=== PATIENT | female | born 1995 | race Caucasian/White ===

== ENCOUNTER 2018-03-15 07:36 | Outpatient (CLI) | payer BC ==
[2018-03-15 16:53] LABS: Mean Corpuscular HGB CONC 33.4 g/dL (32.0-36.0); Mean Corpuscular Volume 92.7 fL (78.0-98.0); Mean Platelet Volume 7.7 fL (7.4-10.4); Platelet Count 452 thou/uL (130-400); Red Blood Cell (RBC) Count 4.21 mill/uL (4.20-5.40); White Blood Cell (WBC) Count 5.9 thou/uL (4.8-10.8)
[2018-03-15 17:03] LABS: BHCG - Serum Negative (NEGATIVE); Pregs Control Background? CLEAR/WHITE (CLR/WHITE); Pregs Control Bar Appear? YES (CONTROL BAR)
== END 2018-03-15 07:37 | disposition home or self-care (01) ==
LOC: LABBT 07:36
PROVIDERS: ATTEND Obstetrics & Gynecology
DX: Z01.812 Encounter for preprocedural laboratory examination (principal); N94.6 Dysmenorrhea, unspecified; N94.10 Unspecified dyspareunia
CPT/HCPCS: 84703; 85027; 86850; 86900; 86901

== ENCOUNTER 2018-03-16 10:13 | Day surgery (SDC) | payer BC ==
[2018-03-15 16:52] VITALS: BMI 19.8
--- NOTE | 2018-03-16 00:03 | HP ---
She is scheduled for day surgery for 03/16/2018. HISTORY OF PRESENT ILLNESS: Ms. Vaughn is a 22-year-old white female, G0, who has been having increasingly severe dysmenorrhea and also dyspareunia. This has progressed in severity and has not been alleviated by significant amounts of nonsteroidals. She also reports onset of some diarrheal-like symptoms premenstrual and during her menstrual cycles. With every menstrual cycle, this has also become an issue for her. She also has polycystic ovarian syndrome evidenced by her ultrasound evaluation with multiple small cysts throughout her ovary and also some irregular menstrual cycles. PAST MEDICAL HISTORY: Significant for attention deficit disorder. SOCIAL HISTORY: She is a nonsmoker. No excessive alcohol or drug use. ALLERGIES: SHE HAS NO KNOWN DRUG ALLERGIES. CURRENT MEDICATIONS: Vyvanse 50 mg capsule daily. FAMILY HISTORY: Significant for sister having carcinoma of the uterine cervix, which was invasive. She has had no previous surgery. Her last Pap smear was 2017, which was normal. She has never been . PHYSICAL EXAMINATION: VITAL SIGNS: Her height is 5 feet 6 inches, weight 123 pounds, BMI of 19.9, blood pressure 110/64, pulse 90, and respirations 18. HEENT: Within normal limits. CHEST: Clear to auscultation. HEART: Regular rate and rhythm. S1 and S2 heart sounds. No murmurs, rubs, or gallops. ABDOMEN: Soft, nontender, nondistended with no palpable masses. PELVIC: Vulva and vagina had no lesions. Bladder was nontender. Normal urethral meatus noted. She had no apparent cystocele, rectocele or abnormal vaginal discharge. She did have tenderness in the posterior cul-de-sac bilaterally over the uterosacral ligaments. Cervix had no lesions and no cervical motion tenderness. Uterus is small and nontender. Adnexa had no masses, but there was some parametrial tenderness appreciated on exam. Pelvic ultrasound revealed no obvious endometriomas or uterine fibroids or abnormalities of the pelvis. There were numerous findings of polycystic changes on the ovaries consistent with PCOS. ASSESSMENT: A 22-year-old white female, G0 with severe dysmenorrhea, unresponsive to high levels of nonsteroidals with dyspareunia and clinical findings suggestive of endometriosis. PLAN: Plan is to proceed with robotic diagnostic laparoscopy. We will assess the pelvis for any endometriotic implants. If these are found, we will plan for excision and ablation during this procedure. She is also aware that she may require some adjuvant therapy with either postsurgical surgery if an endometriosis is encountered. She is set for surgery on 03/16/2018. Job ID: [id number]
[2018-03-16] MEDS ORDERED: Fentanyl 250 MCG/5 ML VIAL ONE (10:46)
[2018-03-16] MEDS ORDERED: Bupivacaine HCl 0.5%/Epinephrine 1:200,000/PF 30 ml Vial ONE (11:43)
[2018-03-16] MEDS ORDERED: Midazolam HCl 2 mg/2 ml Vial ONE (11:44)
[2018-03-16] MEDS ORDERED: CeleCOXIB 100 MG CAP ONE (11:52)
[2018-03-16] MEDS ORDERED: CEFAZOLIN 2 GM/50 ML BAG ONE (11:52)
[2018-03-16] MEDS ORDERED: Famotidine/PF 20 mg/2ml Vial ONE (11:53)
[2018-03-16] MEDS ORDERED: Cyclobenzaprine 10 MG TAB ONE (11:53)
[2018-03-16] MEDS ORDERED: Gabapentin 300 MG CAP ONE (11:53)
[2018-03-16] MEDS ORDERED: Dexamethasone 20 MG/5 ML VIAL ONE (12:56)
[2018-03-16] MEDS ORDERED: Glycopyrrolate 0.2 MG/ML 5 ML SYRINGE ONE (12:56)
[2018-03-16] MEDS ORDERED: Lidocaine 1% PF 5 ML VIAL ONE (12:56)
[2018-03-16] MEDS ORDERED: PROPOFOL 200 MG/20 ML VIAL ONE (12:56)
[2018-03-16] MEDS ORDERED: Ondansetron PF 4 MG/2 ML Vial ONE (12:56)
[2018-03-16] MEDS ORDERED: Ketorolac Tromethamine 30 MG/ML VIAL ONE (12:56)
[2018-03-16] MEDS ORDERED: Rocuronium Bromide 10 MG/ML (10ML VIAL) ONE (12:56)
[2018-03-16] MEDS ORDERED: Fentanyl 100 MCG/2 ML VIAL ONE (13:41)
[2018-03-16] MEDS ORDERED: HYDROcodone/Acetaminophen 5/325 mg Tablet ONE (15:06)
--- NOTE | 2018-03-16 21:36 | OP ---
DATE OF PROCEDURE: 03/16/2018 PREOPERATIVE DIAGNOSES: 1. A 22-year-old white female, G0 with severe dysmenorrhea, dyspareunia. 2. Clinical concern for pelvic endometriosis. POSTOPERATIVE DIAGNOSES: 1. A 22-year-old white female, G0 with severe dysmenorrhea, dyspareunia. 2. Mild pelvic endometriosis confirmed. PROCEDURE PERFORMED: Robotic diagnostic laparoscopy with an excision and ablation of endometriosis implants. SOCCER PLAYER SURGEON: Paulino Puentes MD ANESTHESIA: General endotracheal. ESTIMATED BLOOD LOSS: Less than 10 mL. COMPLICATIONS: None. COUNTS: Correct x2. PATHOLOGY: Peritoneal biopsy and excision of endometriotic implants. FINDINGS: 1. Normal-appearing liver edge, gallbladder, rectum, and appendix. 2. Normal-appearing peritoneal surface of the anterior pelvic cul-de-sac. 3. Bilateral fallopian tubes and uterus normal in appearance. 4. Bilateral ovaries with scattered powder burn endometriotic implants superficial, which status post ablation. 5. Scattered powder burn endometriotic implants noted in bilateral pelvic sidewalls and posterior cul-de-sac, status post excision and ablation. DISPOSITION: Recovery room in stable. DESCRIPTION OF OPERATIVE PROCEDURE: The patient previously received informed consent in regard to surgery. She was taken back to the operating room, where she received a general endotracheal anesthetic agent without complications. She was placed in the dorsal lithotomy position with use of Giovanni stirrups, prepped and draped in usual sterile fashion. Ko catheter was placed. A sidearm speculum was placed in the vagina. Anterior lip of the cervix was grasped with a single-tooth tenaculum and a [employer] uterine manipulator was then placed. Tenaculum and speculum were then removed. Attention was then turned to the abdomen, where perspective trocar sites were infiltrated with 0.5% Marcaine with epinephrine. A 10 mm umbilical incision was made. Veress needle was entered into the peritoneal cavity with the patient's pressure of less than 5 mm. Abdomen was insufflated with the patient's pressure of 15 approximately 4.5 L of carbon dioxide gas. Veress needle was then removed. A size 12 mm trocar was then placed through the infraumbilical incision. The laparoscope was introduced through the trocar sleeve confirming proper entry. Additional bilateral lower quadrant 8 mm trocars were placed under laparoscopic guidance along with a 5 mm right upper quadrant life enrichment assistant port. The patient was placed in Trendelenburg position. The pelvis was inspected and photo documentation, the previously mentioned findings were noted. The robot was then docked. I proceeded to carry out the surgery from the operative console while my life enrichment assistant remained at the bedside. The uterus was elevated from the pelvis with the uterine manipulator. Endometriotic powder burn implants in the posterior cul-de-sac were then excised after the posterior cul-de-sac peritoneum was elevated with a [place] clamp by my life enrichment assistant, and then the peritoneum where the implants were was incised, undermining the peritoneum and sending these off for final pathology. The remainder of the peritoneal implants in the posterior cul-de-sac, pelvic sidewalls, and the endometriotic implants overlying the surface of the bilateral ovaries were then coagulated with monopolar scissor cautery under direct visualization. The position of each ureter was noted prior to anticoagulation on the pelvic sidewalls where the ureter sites was avoided. After adequate ablation and excision of the endometriotic implants were accomplished, the pelvis was irrigated and suctioned and the hemostasis was confirmed. The surgery was completed. The robot was undocked. The trocar sites were removed after the carbon dioxide gas was released. A deep stitch of 0 Vicryl in a [id number] stitch fashion was placed in the fascial defect of the umbilicus and the rest of the trocar sites were closed with 4-0 Monocryl subcuticular and Dermabond. The tenaculum was then removed and hemostasis at the tenaculum site was confirmed. The patient was awakened from anesthesia. She will be discharged home from Day Stay once discharge criteria are met, and has a followup in two weeks for a postoperative checkup and also plan for further adjuvant therapy for the endometriosis. Job ID: [id number]
== END 2018-03-16 15:55 | disposition home or self-care (01) ==
LOC: SDC 10:13
PROVIDERS: ATTEND Obstetrics & Gynecology
PROC: 0U524ZZ Destruction of Bilateral Ovaries, Percutaneous Endoscopic Approach (ICD-10-PCS; principal; 2018-03-16)
PROC: 0U5B4ZZ Destruction of Endometrium, Percutaneous Endoscopic Approach (ICD-10-PCS; principal; 2018-03-16)
DX: N80.3 Endometriosis of pelvic peritoneum (principal); N80.1 Endometriosis of ovary; F98.8 Other specified behavioral and emotional disorders with onset usually occurring in childhood and adolescence; Z79.899 Other long term (current) drug therapy
CPT/HCPCS: 88305; 96374; J0670; J1100; J1885; J2001; J2250; J2405; J2704; J3010; S0028

== ENCOUNTER 2018-06-09 07:21 | Outpatient (CLI) | payer BC ==
--- NOTE | 2018-06-09 09:11 | CT ---
CT Abdomen Pelvis W Con HISTORY: Right lower quadrant abdominal pain COMPARISON: None. FINDINGS: The lung bases are clear. No free air, free fluid or lymphadenopathy seen in the abdomen or pelvis. No calcified gallstones are noted. The liver, spleen, pancreas, adrenal glands and right kidney appear normal. There is a 6 mm low-density lesion in the left renal cortex, likely cyst. The small bowel loops are not abnormally dilated. No abnormally dilated fluid-filled appendix is seen . Uterus and ovaries are present. There is a 19 mm cyst in the right adnexa likely ovarian cyst. No acute osseous abnormalities are seen. IMPRESSION: No acute process.
== END 2018-06-09 07:22 | disposition home or self-care (01) ==
LOC: SCSCT 07:21
PROVIDERS: ATTEND Internal Medicine Gastroenterology
DX: K21.9 Gastro-esophageal reflux disease without esophagitis (principal); R10.31 Right lower quadrant pain; R11.2 Nausea with vomiting, unspecified; R19.4 Change in bowel habit; R50.9 Fever, unspecified; R63.4 Abnormal weight loss; N80.3 Endometriosis of pelvic peritoneum; B34.8 Other viral infections of unspecified site
CPT/HCPCS: 74177